=== PATIENT | female | born 1965 | race African-American/Black ===

== ENCOUNTER 2016-12-17 10:14 | Emergency (ER) | payer SELFPAY ==
[~2016-12-17] VITALS: Ht 160 cm; Wt 64.9 kg
[2016-12-17] MEDS ORDERED: HYDROCHLOROT25 MG PO (10:33)
[2016-12-17] MEDS ORDERED: GABAPENTIN300 MG PO (10:33)
[2016-12-17 11:35] VITALS: BP 144/74
== END 2016-12-17 11:35 | disposition home or self-care (01) | DRG 74 ==
LOC: ED 10:14
DX: G62.9 Polyneuropathy, unspecified (principal); M79.641 Pain in right hand; M79.642 Pain in left hand

== ENCOUNTER 2017-04-11 14:56 | Observation (INO) | payer OTHER ==
[~2017-04-11] VITALS: Ht 160 cm; Wt 71.0 kg
[~2017-04-11 14:56] MED LIST: GABAPENTIN300 MG PO; HYDROCHLOROT25 MG PO
[2017-04-11 15:23] LABS: HEMOGLOBIN 12.6 g/dl (12.0-16.0); IMMATURE GRANULOCYTES 0.3 % (0.0-1.0); MEAN CELL VOLUME 97.4 fL CALC (80.0-100.0); MEAN CORPUSCULAR HGB 33.2 pG CALC (26.0-32.0); MEAN CORPUSCULAR HGB CONC 34.1 g/L CALC (32.0-36.0); NEUT# 1.85 thou/uL (2.00-7.15); RED BLOOD COUNT 3.8 mill/uL (4.20-5.60); RED CELL DISTRI WIDTH 13.2 % (11.5-15.5)
[2017-04-11 15:39] LABS: ALBUMIN 4.5 g/dL (3.2-5.0); ALKALINE PHOSPHATASE 69 u/l (38-126); ANION GAP 15 (6-22 (CALC)); BILIRUBIN, TOTAL 0.8 mg/dL (0.0-1.4); BUN 14 mg/dL (7-17); BUN/CREATININE RATIO 18 (12-20 (CALC)); CALCIUM 9.9 mg/dL (8.4-10.2); CARBON DIOXIDE 23 mmol/l (22-30); CHLORIDE 102 mmol/l (95-108); CREATININE 0.8 mg/dL (0.5-1.0); GFR > 60 ML/MIN (>=60 (CALC)); GFR FOR AFR.AMER. > 60 ML/MIN (>=60 (CALC)); GLUCOSE 107 mg/dL (65-105); POTASSIUM 3.3 mmol/l (3.5-5.1); SGOT/AST 23 u/l (14-36); SGPT/ALT 35 u/l (9-52); SODIUM 137 mmol/l (137-146); TOTAL PROTEIN 7.5 g/dL (6.3-8.2)
[2017-04-11 15:52] LABS: MYOGLOBIN 32 ng/mL (0 - 62)
[2017-04-11] MEDS ORDERED: ASPIRIN 81 LOW81 MG (16:41)
[2017-04-11] MEDS ORDERED: PERCOCET 5/325M1 TAB PO (16:41)
[2017-04-11 16:55] VITALS: BP 125/76
[2017-04-11 18:12] LABS: CHOLESTEROL HDL RATIO 3.8 (<4.4 (CALC))
[2017-04-11 20:00] VITALS: BP 106/64
[2017-04-11 23:54] VITALS: BP 123/70
[2017-04-12 03:37] VITALS: BP 123/79
[2017-04-12 07:19] LABS: HEMATOCRIT 35.9 % (37.0-47.0); HEMOGLOBIN 12.1 g/dl (12.0-16.0); IMMATURE GRANULOCYTES 0.3 % (0.0-1.0); MEAN CELL VOLUME 97.8 fL CALC (80.0-100.0); MEAN CORPUSCULAR HGB CONC 33.7 g/L CALC (32.0-36.0); NEUT# 6.3 thou/uL (2.00-7.15); RED BLOOD COUNT 3.67 mill/uL (4.20-5.60); RED CELL DISTRI WIDTH 13.2 % (11.5-15.5)
[2017-04-12 07:43] LABS: ANION GAP 18 (6-22 (CALC)); BUN 15 mg/dL (7-17); BUN/CREATININE RATIO 21 (12-20 (CALC)); CALCIUM 10.1 mg/dL (8.4-10.2); CARBON DIOXIDE 22 mmol/l (22-30); CHLORIDE 104 mmol/l (95-108); CREATININE 0.8 mg/dL (0.5-1.0); GFR > 60 ML/MIN (>=60 (CALC)); GFR FOR AFR.AMER. > 60 ML/MIN (>=60 (CALC)); GLUCOSE 137 mg/dL (65-105); POTASSIUM 4.6 mmol/l (3.5-5.1); SODIUM 140 mmol/l (137-146)
[2017-04-12] MEDS ORDERED: LIPITOR20 M1 PO (11:51)
[2017-04-12 12:07] VITALS: BP 135/85
[2017-04-12] MEDS ORDERED: ZANTAC 150 MAX150 MG PO (12:42)
[2017-04-12 16:18] VITALS: BP 150/82
== END 2017-04-12 17:45 | disposition home or self-care (01) | DRG 313 ==
LOC: ENPENDDIS → ED 14:56 → ED-I 16:18 → ED 16:19 → MS2 16:20
PROVIDERS: Emergency Medicine; Nurse Practitioner Family; ADMIT Internal Medicine; ATTEND Internal Medicine
DX: R07.2 Precordial pain (principal); G62.9 Polyneuropathy, unspecified; I10 Essential (primary) hypertension; R06.02 Shortness of breath; F17.210 Nicotine dependence, cigarettes, uncomplicated; R01.1 Cardiac murmur, unspecified; E87.6 Hypokalemia
CPT/HCPCS: G0378; Q9967

== ENCOUNTER 2017-08-11 17:20 | Emergency (ER) | payer OTHER ==
[~2017-08-11] VITALS: Ht 160 cm; Wt 68.0 kg
[~2017-08-11 17:20] MED LIST changes: +ASPIRIN 81 LOW81 MG; +LIPITOR20 M1 PO; +PERCOCET 5/325M1 TAB PO; +ZANTAC 150 MAX150 MG PO
[2017-08-11] MEDS ORDERED: LYRICA25 MG PO (17:52)
[2017-08-11] MEDS ORDERED: ULTRAM50 M1 PO (20:16)
[2017-08-11 20:20] VITALS: BP 134/78
== END 2017-08-11 20:31 | disposition home or self-care (01) | DRG 566 ==
LOC: ED 17:20
DX: M77.31 Calcaneal spur, right foot (principal); I10 Essential (primary) hypertension; M25.571 Pain in right ankle and joints of right foot

== ENCOUNTER 2018-02-17 18:52 | Emergency (ER) | payer OTHER ==
[~2018-02-17] VITALS: Ht 160 cm; Wt 69.0 kg
[~2018-02-17 18:52] MED LIST changes: +LYRICA25 MG PO; +ULTRAM50 M1 PO
[2018-02-17] MEDS ORDERED: CELEXA20 MG PO (19:08)
[2018-02-17] MEDS ORDERED: NIFEDIPINE30 MG PO (19:09)
[2018-02-17] MEDS ORDERED: IBUPROFEN600 MG PO (20:04)
[2018-02-17 20:19] VITALS: BP 123/71
== END 2018-02-17 20:19 | disposition home or self-care (01) | DRG 605 ==
LOC: ED 18:52
DX: S90.32XA Contusion of left foot, initial encounter (principal); F17.210 Nicotine dependence, cigarettes, uncomplicated; I10 Essential (primary) hypertension; W01.0XXA Fall on same level from slipping, tripping and stumbling without subsequent striking against object, initial encounter; Y92.007 Garden or yard of unspecified non-institutional (private) residence as the place of occurrence of the external cause

== ENCOUNTER 2018-05-13 18:07 | Emergency (ER) | payer OTHER ==
[~2018-05-13] VITALS: Ht 160 cm; Wt 70.0 kg
[~2018-05-13 18:07] MED LIST changes: +CELEXA20 MG PO; +IBUPROFEN600 MG PO; +NIFEDIPINE30 MG PO
[2018-05-13] MEDS ORDERED: ULTRAM50 M1 PO (19:21)
[2018-05-13 19:29] VITALS: BP 130/84
== END 2018-05-13 19:29 | disposition home or self-care (01) ==
LOC: ED 18:07
DX: S63.501A Unspecified sprain of right wrist, initial encounter (principal); S83.91XA Sprain of unspecified site of right knee, initial encounter; S80.211A Abrasion, right knee, initial encounter; I10 Essential (primary) hypertension; F17.210 Nicotine dependence, cigarettes, uncomplicated; W01.0XXA Fall on same level from slipping, tripping and stumbling without subsequent striking against object, initial encounter; Y92.008 Other place in unspecified non-institutional (private) residence as the place of occurrence of the external cause

== ENCOUNTER 2020-10-11 21:07 | Emergency (ER) | payer OTHER ==
[~2020-10-11] VITALS: Ht 160 cm; Wt 72.7 kg
[2020-10-11 22:12] LABS: HEMATOCRIT 37.3 % (37.0-47.0); IMMATURE GRANULOCYTES 0.1 % (0.0-5.0); MEAN CELL VOLUME 94.4 fL CALC (80.0-100.0); MEAN CORPUSCULAR HGB 30.4 pG CALC (26.0-32.0); MEAN CORPUSCULAR HGB CONC 32.2 g/dL CAL (32.0-36.0); NEUT# 4.55 thou/uL (2.00-7.15); RED BLOOD COUNT 3.95 mill/uL (4.20-5.60); RED CELL DISTRI WIDTH 13.2 % (11.5-15.5)
[2020-10-11 23:06] LABS: ALBUMIN 4.4 g/dL (3.2-5.0); ALKALINE PHOSPHATASE 132 u/l (38-126); ANION GAP 10 (6-22 (CALC)); BILIRUBIN, TOTAL 0.4 mg/dL (0.0-1.4); BUN 20 mg/dL (7-17); BUN/CREATININE RATIO 26 (12-20 (CALC)); CARBON DIOXIDE 24 mmol/l (22-30); CHLORIDE 105 mmol/l (95-108); CREATININE 0.8 mg/dL (0.5-1.0); GFR > 60 ML/MIN (>=60 (CALC)); GFR FOR AFR.AMER. > 60 ML/MIN (>=60 (CALC)); POTASSIUM 3.9 mmol/l (3.5-5.1); SGOT/AST 60 u/l (14-36); SODIUM 135 mmol/l (137-146); TOTAL PROTEIN 8.4 g/dL (6.3-8.2)
[2020-10-11 23:07] LABS: PROTHROMBIN TIME 10.2 SECONDS (9.0-12.5)
[2020-10-12 00:20] VITALS: BP 117/56
[2020-10-12] MEDS ORDERED: MAGNESIUM OXID400 M4 PO (00:20)
[2020-10-12] MEDS ORDERED: FUROSEMIDE20 MG PO (00:20)
[2020-10-12] MEDS ORDERED: POTASSIUM CHLO10 MEQ PO (00:21)
[2020-10-12] MEDS ORDERED: AMITRIPTYLINE H75 M1 PO (00:22)
[2020-10-12] MEDS ORDERED: PROAIR HFA108 MCG/AC (00:22)
== END 2020-10-12 00:45 | disposition short-term general hospital (02) ==
LOC: ED 21:07
PROVIDERS: Emergency Medicine
DX: I21.4 Non-ST elevation (NSTEMI) myocardial infarction (principal); I10 Essential (primary) hypertension; J44.9 Chronic obstructive pulmonary disease, unspecified; F17.210 Nicotine dependence, cigarettes, uncomplicated; Z20.822 Contact with and (suspected) exposure to COVID-19
CPT/HCPCS: J1644